=== PATIENT | male | born 1995 | race Caucasian/White ===

== ENCOUNTER 2018-04-02 04:48 | Emergency (ER) | payer OTHER ==
[2018-04-02] MEDS: LIDOCAINE 1% MDV 20ML VIAL SC (06:15)
== END 2018-04-02 06:55 | disposition home or self-care (01) ==
LOC: M ED 04:48
DX: S01.511A Laceration without foreign body of lip, initial encounter (principal); W01.0XXA Fall on same level from slipping, tripping and stumbling without subsequent striking against object, initial encounter; Y92.018 Other place in single-family (private) house as the place of occurrence of the external cause; F17.210 Nicotine dependence, cigarettes, uncomplicated
CPT/HCPCS: 12011

== ENCOUNTER → 2019-09-07 | Outpatient (REF) | payer OTHER | LOC: M SFHCLERA 14:15 | PROVIDERS: ATTEND Physician Assistant | DX: J02.9 Acute pharyngitis, unspecified (principal) ==

== ENCOUNTER → 2019-09-07 | Outpatient (CLI) | payer OTHER ==
--- NOTE | 2019-09-07 14:15 | REP ---
Chest x-ray: Two views. History: Cough . Comparison study: No comparison study . Findings: The lungs are well inflated and free of infiltrate. The pleural angles are sharp. The heart size is normal. Pulmonary vasculature is not increased. No significant bony abnormality is seen. Impression: Negative chest x-ray. Electronically Signed by Quentin Ochoa MD 09/07/2019 02:07 P
== END ==
LOC: M LRY 13:49
PROVIDERS: ATTEND Physician Assistant
DX: R05 Cough (principal)

== ENCOUNTER → 2022-06-13 | Outpatient (REF) | payer OTHER | LOC: M LAB REF 16:05 | PROVIDERS: ATTEND Ophthalmology | DX: H10.32 Unspecified acute conjunctivitis, left eye (principal) ==